=== PATIENT | female | born 1965 | race Caucasian/White ===

== ENCOUNTER → 2016-11-25 | Outpatient (CLI) | payer OTHER ==
[2015-03-02 11:33] VITALS: BP 119/57
[~2016-11-25] MED LIST: CYCL10TA2 PO; IBUP-1060 PO; METH4TAB2 PO; OXYC1TAB7 PO
--- NOTE | 2016-11-26 12:31 | KCIC ---
DATE: 11/25/2016 EXAM: MAMMO MARLENE SCREENING BILATERAL HISTORY: Routine screening COMPARISON: 10/11/2015 The breast parenchyma is heterogeneously dense, which could reduce sensitivity of mammography. Breast parenchyma level C. FINDINGS: 2-D and 3-D tomosynthesis imaging was performed in CC and MLO projections. The fibroglandular tissues are somewhat nodular in character. There is a discrete 6 mm slightly lobulated nodule in the medial aspect of the right breast as best seen on CC tomogram image #37 and oblique tomogram image #40. It lies at approximately the 3:00 location. It may have been present on the previous study but was less clearly defined due to overlying fibroglandular shadows. A tiny nodule in the anterior aspect of the right breast at approximately the 9:00 location demonstrates a hilar lucency compatible with a benign intramammary lymph node. A cluster of tiny nodules in the posterolateral aspect of the right breast also probably represent lymph nodes which can be seen in retrospect on the previous study. Benign type calcifications are present in both breasts. No suspicious microcalcifications are evident. Benign-appearing lymph node type densities are present in the left axillary region. IMPRESSION: Small right breast nodules some of which appear to represent benign intramammary lymph nodes. There is a nonspecific nodule at approximately the 3:00 location in the right breast. A targeted right breast ultrasound is suggested for further evaluation. BI-RADS CATEGORY: 0 INCOMPLETE: NEEDS ADDITIONAL IMAGING EVALUATION AND/OR PRIOR MAMMOGRAMS FOR COMPARISON. RECOMMENDED FOLLOW-UP: ADD ADDITIONAL IMAGING PQRS compliance statement: Patient information was entered into a reminder system with a target due date for the next mammogram. Mammography is a sensitive method for finding small breast cancers, but it does not detect them all and is not a substitute for careful clinical examination. A negative mammogram does not negate a clinically suspicious finding and should not result in delay in biopsying a clinically suspicious abnormality. "Our facility is accredited by the [employer] Mammography [employer]."
== END | disposition home or self-care (01) ==
LOC: KCIC MAMMO 13:52
PROVIDERS: ATTEND Family Medicine
DX: Z12.31 Encounter for screening mammogram for malignant neoplasm of breast (principal)
CPT/HCPCS: 77063; G0202; 77067

== ENCOUNTER → 2016-12-09 | Outpatient (CLI) | payer OTHER ==
[2015-03-02 11:33] VITALS: BP 119/57
--- NOTE | 2016-12-09 09:41 | RAD ---
Right breast ultrasound 12/09/2016 Indication: Incomplete mammogram Comparison: Prior mammogram from 11/25/2016, 10/11/2015 Technique: Targeted right breast ultrasound was performed for further evaluation of right breast mass suspected on mammography. Findings: Targeted sonographic evaluation of the right breast at the 12:00, 1:00, 2:00, 3:00, 4:00, 5:00, and 6:00 positions was performed. Specific attention to the 3:00 position in the region of suspected abnormality on mammogram was performed. No suspicious mass or area of architectural distortion is identified. Mammographic finding appears present on examination from 10/11/2015 and has circumscribed, partially lobulated borders and is probably benign. Impression: No sonographic correlate is identified for mammographic abnormality. Findings are probably benign and follow-up mammographic evaluation in 6 months is recommended. BI-RADS 3: Probably benign findings. Recommendations: Recommend 6 month follow-up mammogram.
== END | disposition home or self-care (01) ==
LOC: KCIC US 08:52
PROVIDERS: ATTEND Family Medicine
DX: R92.8 Other abnormal and inconclusive findings on diagnostic imaging of breast (principal)
CPT/HCPCS: 76641

== ENCOUNTER → 2017-06-09 | Outpatient (CLI) | payer BC, OTHER | END | disposition home or self-care (01) | LOC: KCIC MAMMO 10:22 | DX: R92.8 Other abnormal and inconclusive findings on diagnostic imaging of breast (principal) | CPT/HCPCS: 77065; G0279 ==

== ENCOUNTER → 2017-11-27 | Outpatient (CLI) | payer BC ==
[2015-03-02 11:33] VITALS: BP 119/57
--- NOTE | 2017-11-27 10:01 | KCIC ---
EXAM: Bilateral digital diagnostic mammogram with tomosynthesis. HISTORY: 52-year-old female presents for 6 month follow-up evaluation of nodularity within the right breast demonstrated on prior mammograms. The patient is due for bilateral mammography. TECHNIQUE: Full-field digital craniocaudal and mediolateral oblique 2D and 3D tomosynthesis images of both breasts are obtained for evaluation. Computer aided detection with Apru[employer] software version 9.3 was applied. COMPARISON: Mammograms dated 06/09/2017, 11/25/2016 and 10/11/2015 and sonograms dated 06/09/2017 and 12/09/2016. BREAST PARENCHYMAL DENSITY: Level B - Scattered fibroglandular densities. FINDINGS: There is no new suspicious mass, microcalcification or region of architectural distortion. There is a stable circumscribed not within the medial right breast. The year of stability and absence of a suspicious sonographic correlate on prior sonograms favors a benign sonographically occult intramammary lymph node. There is also a stable small benign circumscribed nodule within the lateral right breast. IMPRESSION: BI-RADS Category 2: Benign finding(s). RECOMMENDATION: Annual mammography is recommended. If your mammogram demonstrates that you have dense breast tissue, which could hide abnormalities, and if you have other risk factors for breast cancer that have been identified, you might benefit from supplemental screening tests that may be suggested by your ordering physician. Dense breast tissue, in and of itself, is a relatively common condition. This information is not provided to cause undue concern, but rather to raise your awareness and to promote discussion with your physician regarding the presence of other risk factors, in addition to dense breast tissue. A report of your mammography results will be sent to you and your physician. You should contact your physician if you have any questions or concerns regarding this report. Mammography is a sensitive method for finding small breast cancers, but it does not detect them all and is not a substitute for careful clinical examination. A negative mammogram does not negate a clinically suspicious finding and should not result in delay in biopsying a clinically suspicious abnormality. PQRS compliance statement - Patient information was entered into a reminder system with a target due date for the next mammogram. "Our facility is accredited by the [employer] Mammography [employer]." Electronically signed by: Digna Bee MD (11/27/2017 9:57 AM) [facility]
== END | disposition home or self-care (01) ==
LOC: KCIC MAMMO 09:02
PROVIDERS: ATTEND Family Medicine
DX: R92.8 Other abnormal and inconclusive findings on diagnostic imaging of breast (principal)
CPT/HCPCS: 77066; G0279; 77062

== ENCOUNTER → 2019-01-24 | Outpatient (CLI) | payer BC ==
[2015-03-02 11:33] VITALS: BP 119/57
--- NOTE | 2019-01-24 20:12 | KCIC ---
Bilateral digital screening mammograms with 3-D tomosynthesis: Reason for examination: Routine screening. Comparison is made to previous studies dated 11/27/2017 and 11/25/2016. Bilateral mammograms in CC and oblique projections were obtained with 2-D imaging and 3-D tomosynthesis imaging on a Siemens Inspiration unit and reviewed on the workstation. Interpretation was made with the benefit of CAD. The skin and nipples show no abnormalities. No abnormal axillary lymph nodes are seen. The breast parenchyma is heterogeneously dense. (Breast density: Category C.) There are small circumscribed nodular parenchymal densities again seen in the right breast which are unchanged. There are no new dominant masses, suspicious calcifications or architectural distortion. Impression: No evidence of malignancy. Recommend routine screening. Your patient's mammogram demonstrates that she has dense breast tissue (breast density category C or D), which could hide abnormalities, and if she has other risk factors for breast cancer that have been identified, she might benefit from supplemental screening tests that may be suggested by you as her ordering physician. Dense breast tissue, in and of itself, is a relatively common condition. Therefore, this information is not provided to cause undue concern, but rather to raise your awareness and to promote discussion with your patient regarding the presence of other risk factors, in addition to dense breast tissue. Your patient's mammography results will be sent to her. BI-RAD Category 2: Benign. "Our facility is accredited by the [employer] Mammography [employer]." This patient's information has been entered into a reminder system for the patient to be notified with the results of her examination and a target date for the next mammogram. Electronically signed by: Belgica Johnson MD (01/24/2019 8:09 PM) [id number]
== END | disposition home or self-care (01) ==
LOC: KCIC MAMMO 15:15
PROVIDERS: ATTEND Family Medicine
DX: Z12.31 Encounter for screening mammogram for malignant neoplasm of breast (principal); N64.89 Other specified disorders of breast
CPT/HCPCS: 77063; 77067

== ENCOUNTER → 2020-03-14 | Outpatient (CLI) | payer BC ==
[2015-03-02 11:33] VITALS: BP 119/57
--- NOTE | 2020-03-14 12:26 | KCIC ---
EXAM: Bilateral digital screening mammogram with tomosynthesis. HISTORY: 54-year-old female presents for screening mammography. TECHNIQUE: Full-field digital craniocaudal and mediolateral oblique 2D and 3D tomosynthesis images of both breasts are obtained for evaluation. Computer aided detection was applied. COMPARISON: 01/24/2019 BREAST PARENCHYMAL DENSITY: Level B - Scattered fibroglandular densities. FINDINGS: There is no new suspicious mass, microcalcification or region of architectural distortion. There are stable areas of nodularity within the right breast. IMPRESSION: BI-RADS Category 2: Benign finding(s). RECOMMENDATION: Annual mammography is recommended. If your mammogram demonstrates that you have dense breast tissue, which could hide abnormalities, and if you have other risk factors for breast cancer that have been identified, you might benefit from s upplemental screening tests that may be suggested by your ordering physician. Dense breast tissue, i n and of itself, is a relatively common condition. This information is not provided to cause undue c oncern, but rather to raise your awareness and to promote discussion with your physician regarding th e presence of other risk factors, in addition to dense breast tissue. A report of your mammography re sults will be sent to you and your physician. You should contact your physician if you have any ques tions or concerns regarding this report. Mammography is a sensitive method for finding small breast cancers, but it does not detect them all a nd is not a substitute for careful clinical examination. A negative mammogram does not negate a clin ically suspicious finding and should not result in delay in biopsying a clinically suspicious abnorma lity. PQRS compliance statement - Patient information was entered into a reminder system with a target due date for the next mammogram. "Our facility is accredited by the [employer] Mammography [employer]." Electronically signed by: Digna Bee MD (03/14/2020 12:24 PM) [email or web address]
== END ==
LOC: KCIC MAMMO 10:11
PROVIDERS: ATTEND Family Medicine
DX: Z12.31 Encounter for screening mammogram for malignant neoplasm of breast (principal)
CPT/HCPCS: 77063; 77067

== ENCOUNTER → 2021-05-08 | Outpatient (CLI) | payer BC ==
[2015-03-02 11:33] VITALS: BP 119/57
[~2021-05-08] MED LIST changes: +CYCL10TA19 PO; -CYCL10TA2 PO
--- NOTE | 2021-05-08 17:24 | KCIC ---
Bilateral digital screening mammograms with 3-D tomosynthesis: Reason for examination: Routine screening. Comparison is made to previous studies dated back to 10/11/2015. Bilateral mammograms in CC and oblique projections were obtained with 2-D imaging and 3-D tomosynthes is imaging on a Siemens Inspiration unit and reviewed on the workstation. Interpretation was made wit h the benefit of CAD. The skin and nipples show no abnormalities. No abnormal axillary lymph nodes are seen. The breast par enchyma shows scattered fatty and fibroglandular density. (Breast density: Category B.) There are no dominant masses, suspicious calcifications or architectural distortion. Benign calcifications are pre sent. Impression: No evidence of malignancy. Recommend routine screening. BI-RAD Category 2: Benign. "Our facility is accredited by the [employer] Mammography [employer]." This patient's information has been entered into a reminder system for the patient to be notified wit h the results of her examination and a target date for the next mammogram. Electronically signed by: Belgica Johnson MD (05/08/2021 5:21 PM) [id number]
== END ==
LOC: KCIC MAMMO 15:20
PROVIDERS: ATTEND Family Medicine
DX: Z12.31 Encounter for screening mammogram for malignant neoplasm of breast (principal)
CPT/HCPCS: 77063; 77067